=== PATIENT | female | born 1995 | race Caucasian/White ===

== ENCOUNTER 2018-09-08 06:01 | Day surgery (SDC) | payer OTHER, SELFPAY ==
[2018-09-04 08:04] VITALS: BMI 28.5
[2018-09-08] VITALS (9 sets, daily range): BP systolic 109–126; BP diastolic 56–76; PULSE 81–100; RESP 8–16; TEMP 36.1–37.1; O2SAT 94–98; BMI 28.7
[2018-09-08] MEDS: LACTATED RINGERS 1,000 ML 42 ML IV ×2 (07:11→09:58)
--- NOTE | 2018-09-08 07:32 | SUR.PREOP ---
PER MD FRANCO DISREGARD CURRENT ORDER FOR SERUM PREG TEST. PT UNABLE TO URINATE IN PRE OP AREA THEREFORE UNABLE TO LEAVE URINE SAMPLE. MD FRANCO AWARE.
--- NOTE | 2018-09-08 07:38 | PM.PREOP ---
Pre-operative Note Interval Note Pre-op Check: Yes History & Physical Reviewed by Physician Changes: No
--- NOTE | 2018-09-08 07:38 | PM.OP.1 ---
Operative Date/Time/Diagnoses Date of procedure: 09/08/18 Time of procedure: 07:38 Pre-op diagnosis: Left hallux abductovalgus with bunion Post-op diagnosis: same Procedure & Clinicians Procedure: Left first metatarsocuneiform arthrodesis, bunionectomy Same procedure as scheduled: Yes Indications: Painful hallux abductovalgus with bunion deformity. Conservative measures failed to alleviate pain and she wished to have surgical intervention at this time. Surgeon: iDana Whittington Click Yes if Unassisted: Yes Anesthesia Type: General Operative Notes Specimen(s): none sent Implants & Drains: [place] plate, 4.0 screw and 3.5 screws x 4 Estimated Blood Loss (mL): 30 Blood products transfused: none Tourniquet time (min): 117 Procedure in detail: The patient was brought to the operating room and placed on the operating table in the supine position. tourniquet was placed about the thigh. Well padded appropriately aligned. After induction of general anesthesia the foot and ankle were prepped and draped in the usual aseptic manner. The tourniquet was inflated. Incision was made over the 1st metatarsal cuneiform joint extending to the 1st metatarsophalangeal joint. The incision was deepened through subcutaneous tissues being careful to identify and retract all vital neurovascular structures. All bleeders were cauterized and ligated as necessary. A capsulotomy was performed to the 1st MTPJ exposing the enlarged medial eminence. The saw was used to resect the medial eminence and although there appeared to be somewhat of a bony cyst on the medial eminence a portion of this was able to be removed with the resection and the remaining portion did not appear to be serving as a vacuole of the bone and did not need packing. A rasp was used to reduce the sharp edges of the bone. Attention was then directed to the 1st metatarsocuneiform joint which was entered. The joint was taken down and a saw was used to resect the base of the 1st metatarsal and the distal leading edge of the medial cuneiform. This was done at a slight angle on the medial cuneiform to allow for closure of the intermetatarsal angle. It was found that the edge of the 1st metatarsal base laterally was too prominent to allow for full closure so the proximal lateral edge of the 1st metatarsal was also resected. The area was then able to be closed and the alignment was good. A drill was used to fenestrate either side of the former MC joint and fish scaling was also used. The area was irrigated with copious amounts normal sterile saline. With the aid of C-arm the guidewire was placed for temporary fixation through the 1st metatarsocuneiform joint. I was able to translate the 1st metatarsal slightly medially and plantarly to allow for better correction. It was noted to make sure that there was not a significant amount of plantar flexion distally. Next the plate was trialed and using the guide the lag screw was placed from distal lateral to proximal medial. The fusion site showed good compression and closure. There was still a little spot left that I was able to fill with some portion of harvested bone from the prior resection. The plate was then attached with the corresponding screws in the normal AO technique. This was reviewed on C-arm and noted to be strong and in appropriate alignment. Once this was loaded it would appear that there did not need to be a distal metatarsal osteotomy or phalangeal osteotomy and instead capsule balancing techniques with the soft tissue were appropriate. Once again after irrigation the medial 1st MTP capsule was resected and closed down and alignment with Vicryl the tourniquet was deflated and a prompt hyperemic response was seen in the foot. Deep and subcutaneous closure was closed performed with Vicryl and nylon to the skin. The foot was dressed with a lightly compressive sterile dressing and splint in alignment. She was then placed in a postoperative shoe and transferred to PACU with vital signs stable. Complications: none Condition: stable Disposition: PACU Plan for aftercare: Following a period of postoperative monitoring the patient be discharged home on written and oral postoperative instructions including keeping the dressing dry and intact, avoiding ambulation to the foot, icing and elevating the foot when seated at home. DVT prevention techniques have been reviewed. She has a postoperative visit already scheduled and around the 3 in a half to 4 week que we will usually get an x-ray at that time. Continue nonweightbearing until that point at minimum.
[2018-09-08] MEDS: CEFAZOLIN 2 GM/100 ML FROZ.PIGGY IV (07:45)
--- NOTE | 2018-09-08 08:20 | SUR.OPER ---
Supine on padded OR bed, head on pillow, arms secured on padded arm boards at <90 degrees abduction, left leg is under control of surgeon, safety belt at thigh, tape over blanket over right lower leg.
[2018-09-08] MEDS: BUPIVACAINE 0.5% (PF) VIAL 30 ML INJ (08:33)
[2018-09-08] MEDS: fentaNYL 100 MCG/2 ML INJ 50 MCG IV (11:01)
[2018-09-08] MEDS: HYDROCODONE/ACET 5/325 TABLET 1 TAB PO (11:27)
== END 2018-09-08 11:41 ==
PROVIDERS: PCP Physician Assistant Medical; Visit Provider Podiatrist
PROC: 0QBP0ZZ Excision of Left Metatarsal, Open Approach (ICD-10-PCS; CPT 28292; principal; 2018-09-08 07:45)
DX: M20.12 Hallux valgus (acquired), left foot (principal)
CPT/HCPCS: 28297; J0690; J1100; J2405; J2704; J3010

== ENCOUNTER 2019-12-07 12:56 | Day surgery (SDC) | payer OTHER, SELFPAY ==
[2019-12-04 08:44] VITALS: BMI 30.5
[2019-12-07] VITALS (7 sets, daily range): BP systolic 117–136; BP diastolic 75–87; PULSE 70–84; RESP 10–17; TEMP 36.4–37.3; O2SAT 99–100; BMI 30.5
[2019-12-07] MEDS: LACTATED RINGERS 1,000 ML 42 ML IV ×2 (13:44→15:30)
[2019-12-07] MEDS: CEFAZOLIN 2 GM/100 ML FROZ.PIGGY IV (15:47)
--- NOTE | 2019-12-07 15:49 | PM.PREOP ---
Pre-operative Note Interval Note History & Physical reviewed/Exam performed by Physician: Yes Changes to H&P: No
--- NOTE | 2019-12-07 15:49 | PM.OP.1 ---
Operative Date/Time/Diagnoses Date of procedure: 12/07/19 Time of procedure: 15:49 Pre-op diagnosis: Left great toe joint bone spur, hallux limitus Post-op diagnosis: same Procedure & Clinicians Procedure: Left first metatarsophalangeal joint cheilectomy Same procedure as scheduled: Yes Indications: Painful limited motion to the great toe joint left foot with spur formation. Conservative measures failed to alleviate the pain and she wished to have surgical intervention at this time. Surgeon: Diana Whittington Click Yes if Unassisted: Yes Anesthesia Type: General Operative Notes Closure Type: primary Specimen(s): none sent Estimated Blood Loss (mL): 10 Blood products transfused: none Procedure in detail: The patient was brought to the operating room and placed on the operating table in the supine position. Tourniquet was placed about the left thigh. Patient is well-padded and appropriately supported. After induction of general anesthesia the left foot and ankle were prepped and draped in the usual aseptic manner. The tourniquet was inflated. Incision was made over the 1st metatarsal phalangeal joint. The incision was deepened through subcutaneous tissues being careful to identify and retract all vital neurovascular structures. All bleeders were cauterized and ligated as necessary. The capsule was entered dorsally at the joint and this exposed the spurring of the dorsal metatarsal head, proximal phalangeal base, and significant amount of scar tissue noted on the dorsal joint. Of note, the metatarsal head dorsally showed some wearing of cartilage surface. There was limited motion in plantar flexion and dorsiflexion. The saw and rongeur were used to resect the dorsal joint spurs. A rasp was used to reduce the sharp edges of the bone. Much of the scar tissue was also reduced. A McGlamry scoop was used to gently enter the joint and plantarly release scar tissue. This allowed for better ability for dorsiflexion and plantar flexion of the great toe. The area was irrigated with copious amounts normal sterile saline. Deep and subcutaneous closure was closed performed with Vicryl. The tourniquet was deflated and a prompt hyperemic response was seen in the foot. Nylon suture used to close the skin. The foot was dressed with a lightly compressive sterile dressing and splint in alignment. Patient was transferred to PACU with vital signs stable. She will be placed in her postoperative shoe. Complications: none Post-operative Condition: stable Disposition: PACU Plan for aftercare: Following a period of postoperative monitoring, the patient will be discharged home on written and oral postoperative instructions including keeping the dressing dry and intact, avoiding significant ambulation to the foot although she is allowed a little bit of pressure to the midfoot periodically for weight-bearing. She should not be walking on the foot at this time, and that can change once the sutures have been removed. We will have her initiate range of motion exercises with the great toe this week. DVT prevention techniques have been reviewed.
--- NOTE | 2019-12-07 16:06 | SUR.OPER ---
Supine on padded OR bed, head on pillow, arms secured on padded arm boards at <90 degrees abduction, legs uncrossed, safety belt at abdomen, tape over blanket over nonoperative leg, bump under left hip.
[2019-12-07] MEDS: BUPIVACAINE 0.5% (PF) VIAL 30 ML INJ (16:11)
[2019-12-07] MEDS: LIDOCAINE 2% W/EPI INJ 20 ML INJ (16:12)
--- NOTE | 2019-12-07 16:44 | SUR.PHASEI ---
Addendum entered by Reva Vásquez R.N. 12/07/19 16:48: Was shivering upon arrival, warm blankets given, shivering subsided. Original Note: To PACU, very sleepy, arouses easily to voice, denied pain/nausea upon arrival 1645 Resting with eyes closed, states I'm awake, I can hear everything, I'm just really sleepy.
[2019-12-07] MEDS: HYDROCODONE/ACET 5/325 TABLET 1 TAB PO (17:05)
--- NOTE | 2019-12-07 17:07 | SUR.PHASEII ---
Spouse sitting with patient, crackers and water given prior to Rx.
--- NOTE | 2019-12-07 17:18 | SUR.PHASEII ---
Dr Whittington talking with patient, giving instructions. Pt A&O, talking appropriately. Moves freely. Stable
--- NOTE | 2019-12-07 17:21 | SUR.PHASEII ---
fresh ice pack given.
--- NOTE | 2019-12-07 17:25 | SUR.PHASEII ---
last minute questions clarified with Dr. Whittington prior to discharge. Stable and pleasant.
== END 2019-12-07 17:25 | disposition home or self-care (01) ==
LOC: OR 13:01
PROVIDERS: PCP Physician Assistant Medical; Referring Provider Podiatrist; Visit Provider Podiatrist
PROC: (CPT 28289; principal; 2019-12-07 14:30)
DX: M20.5X2 Other deformities of toe(s) (acquired), left foot (principal); M77.42 Metatarsalgia, left foot; M25.775 Osteophyte, left foot
CPT/HCPCS: 28289; J0690; J1100; J1885; J2250; J2405; J2704; J3010

== ENCOUNTER → 2022-01-11 16:10 | Outpatient (CLI) | payer OTHER, SELFPAY ==
[2022-01-11 17:48] LABS: COVID19 -Nasal RAPID Negative (Negative)
== END ==
PROVIDERS: PCP Physician Assistant Medical; Visit Provider Obstetrics & Gynecology
DX: Z01.812 Encounter for preprocedural laboratory examination (principal); Z20.822 Contact with and (suspected) exposure to COVID-19
CPT/HCPCS: 87635

== ENCOUNTER 2022-01-12 12:22 | Day surgery (SDC) | payer OTHER, SELFPAY ==
[2022-01-07 11:12] VITALS: BMI 29.4
[2022-01-12] VITALS (10 sets, daily range): BP systolic 98–121; BP diastolic 41–78; PULSE 58–100; RESP 11–20; TEMP 36.2; O2SAT 96–100; BMI 28.7
--- NOTE | 2022-01-12 | PATH_ITS ---
[facility] Accession Number: [id number] . 01 Material submitted: . peritoneum - PERITONEAL BIOPSIES . 02 Diagnosis: Peritoneal Biopsies: Fibroconnective tissue with involvement by endometriosis; negative for epithelial atypia or malignancy. Separate tissue fragments with features of fat necrosis. [facility] 01/14/2022 1731 Local . 02 Electronically signed: . Noemy Fong MD, Pathologist NPI- [id number] . 01 Gross description: . Received in formalin, labeled with the patient's name and additionally labeled peritoneal biopsies is an aggregate of chavez-brown variably hemorrhagic soft tissue fragments measuring 1.5 x 1.3 x 0.4 cm. The specimen is entirely submitted in cassette A1. (MS:[id number]) /MRV 01/13/2022 1505 Local . 02 Pathologist provided ICD-10: N92.6, N94.6, R10.2, N94.89 . 02 CPT . 869490 Specimen Comment: A courtesy copy of this report has been sent to [phone] Performed at: 01 [facility] [address] [facility], [place], [place] [id number] MD Everette Richard MD Phone: [phone] Performed at: [address] [facility] [address] [place], [place] [id number] MD Jalyn Sylvester MD Phone: [phone]
--- NOTE | 2022-01-12 12:58 | PM.PREOP ---
Pre-operative Note COVID-19 COVID-19 status: Negative Result date/Date tested (Pos, Neg/Pending): 01/11/22 Criteria for continued procedure: Expected advancement of disease process Interval Note History & Physical reviewed/Exam performed by Physician: Yes Changes to H&P: No
[2022-01-12] MEDS: LACTATED RINGERS 1,000 ML 100 ML IV (13:03)
--- NOTE | 2022-01-12 13:57 | SUR.OPER ---
Lithotomy on padded OR bed, head on pillow, arms secured on padded arm boards at <90 degrees abduction. Legs secured in padded yellow fins stirrups.
[2022-01-12] MEDS: BUPIVACAINE 0.5% (PF) 30 ML, EPINEPHrine 0.15 MG INJ (14:11)
[2022-01-12] MEDS: METHYLENE BLUE 50 MG/10 ML VIAL IV (14:26)
--- NOTE | 2022-01-12 14:50 | P.OP_ITS ---
Operative Date/Time/Diagnoses Date of procedure: 01/12/22 Time of procedure: 14:50 Pre-op diagnosis: Dysmenorrhea with 3 cm mass behind cervix likely endometriosis Post-op diagnosis: same Procedure & Clinicians Procedure: Laparoscopy with resection, cauterization of endometriosis Same procedure as scheduled: Yes Indications: Dysmenorrhea an 3 cm mass behind the cervix suggestive endometriosis Surgeon: Lidia Cortes Director Telecommunications: Emily Lr Click Yes if Unassisted: No Anesthesia Type: General Operative Notes Findings: Extensive endometriosis. Normal uterus, fallopian tubes and ovaries. There did not appear to be involvement of the tubes and ovaries with endometriosis. Mass behind cervix appears to be endometriosis with a degenerating epiploica. Endometriosis on the sidewalls of the abdomen bilaterally. [place] left over from prior appendectomy. Normal liver edge. Endometriosis involving the surface of the descending colon. Extensive endometriosis on the bilateral posterior broad ligaments. Closure Type: primary Specimen(s): other (Peritoneal biopsies) Estimated Blood Loss (mL): 5 Blood products transfused: none Procedure in detail: Patient was brought to the operating room where she underwent general anesthesia. She [facility] and prepped and draped in usual sterile fashion. No antibiotics were indicated. Pulsatile stockings were in place and functional. Warming was with blankets. A single-tooth tenaculum was placed on the anterior lip of the cervix and the cervix dilated to #6 Hegar dilator. The Zumi uterine manipulator was placed and balloon inflated with 3 mL of air. The area of the incisions were injected with half percent Marcaine with epinephrine. An incision was made in the umbilicus with a scalpel and the Verres needle placed in the abdomen. Confirmation of correct placement of the needle was performed by withdrawing on the syringe and then allowing fluid to fall freely through the needle. The abdomen was insufflated to 4 L of CO2. A 5 mm trocar was placed under direct visualization. 2 other 5 mm trochars were placed in the right and left lower quadrant under direct visualization after incising the skin. There did not appear to be any damage with placement of the trocars. Areas of endometriosis on the posterior broad ligament that were not over the ureters were grasped and removed with scissors attached to monopolar cautery. Bleeding was controlled with monopolar cautery. The mass behind the cervix was grasped and removed with blunt and sharp dissection. Bleeding was controlled with cautery. Adequate hemostasis was noted. The CO2 was allowed to escape from the abdomen. The trochars were removed. Skin was closed with 4-0 monocryl. The patient went to recovery room in good condition. Complications: none Post-operative Condition: stable Disposition: same day surgery Plan for aftercare: Home when awake and stable. Patient will need Lupron therapy postop to control endometriosis that was not resectable.
[2022-01-12] MEDS: ACETAMINOPHEN 325 MG TABLET 975 MG PO (15:03)
[2022-01-12] MEDS: ONDANSETRON 4 MG/2 ML INJ IV (15:04)
[2022-01-12] MEDS: OXYCODONE IR 5 MG TABLET PO ×2 (15:04→15:37)
[2022-01-12] MEDS: hydrOXYzine 50 MG/ML INJ 25 MG IM (15:04)
[2022-01-12] MEDS: HYDROMORPHONE 2 MG INJ IV (15:16)
== END 2022-01-12 16:25 | disposition home or self-care (01) ==
PROVIDERS: PCP Physician Assistant Medical; Referring Provider Specialist; Visit Provider Specialist
PROC: 0U5B4ZZ Destruction of Endometrium, Percutaneous Endoscopic Approach (ICD-10-PCS; CPT 58662; principal; 2022-01-12 13:30)
DX: N80.3 Endometriosis of pelvic peritoneum (principal); N80.8 Other endometriosis
CPT/HCPCS: 58662; 81025; J0171; J1100; J1170; J1885; J2250; J2405; J2704; J3010; J3410; Q9968

== ENCOUNTER → 2022-06-21 16:37 | Outpatient (CLI) | payer OTHER, SELFPAY ==
--- NOTE | 2022-06-21 16:39 | DI.US.S_ITS ---
PROCEDURE: US OB LIMITED INDICATIONS: PAINFUL PELVIC PRESSURE AND BLOATING OUTSIDE/PRIOR DATING DATA: Last menstrual period (LMP): Unknown. LMP-based estimated date of delivery (LOKESH): Unknown. First dating scan (date and location): 06/21/2022. Estimated date of delivery (LOKESH) from first dating scan: 10/21/2022. TECHNIQUE: Real-time scanning was performed of the fetus, with image documentation. COMPARISON: None. FINDINGS: A single living intrauterine gestation is present. Presentation: Vertex. Placenta: Placental position is posterior, without previa. Amniotic fluid index: 16.2 cm, normal range is 5-24 cm. Single deepest vertical pocket is 4.7 cm. heart rate: 153 beats per minute. Maternal cervical canal: 3.9 cm long. Normal lower limit is 2.5 cm. Biometric measurements: BPD: 5.4 cm, 22 weeks 4 days HC: 19.1 cm, 21 weeks 3 days AC: 17.1 cm, 22 weeks 0 days FL: 4.3 cm, 24 weeks 0 days Estimated gestational age by today's ultrasound: 22 weeks 4 days Estimated weight 529 g. Probable anterior uterine fibroid measuring 2.3 cm. facial structures and profile appear to be within normal limits. IMPRESSION: 1. [place] living intrauterine at 22 weeks 4 days based on today's ultrasound. Estimated weight 529 g. 2. Normal placenta and amniotic fluid. Recommend short-term follow-up OB ultrasound for complete anatomic survey. Dictated by: Rickie Donovan M.D. on 06/21/2022 at 19:12 Approved by: Rickie Donovan M.D. on 06/21/2022 at 19:16
== END ==
PROVIDERS: PCP Physician Assistant Medical; Referring Provider Obstetrics & Gynecology; Visit Provider Obstetrics & Gynecology
DX: O99.891 Other specified diseases and conditions complicating pregnancy (principal); R10.2 Pelvic and perineal pain; Z3A.22 22 weeks gestation of pregnancy
CPT/HCPCS: 76815

== ENCOUNTER → 2022-06-25 13:22 | Outpatient (CLI) | payer OTHER, SELFPAY ==
[2022-06-25 13:51] LABS: Miscellaneous to LabCorp NATERA KIT
[2022-06-25 14:33] LABS: Appearance Urine UA CLEAR; Bilirubin Urine UA NEGATIVE (NEGATIVE); Color Urine UA YELLOW; Glucose Urine UA NEGATIVE (Negative); Ketones Urine UA NEGATIVE (NEGATIVE); Leukocyte Esterase Urine UA TRACE (NEGATIVE); Nitrite Urine UA NEGATIVE (Negative); Occult Blood Urine UA 2+ (Negative); Protein Urine UA NEGATIVE (Negative); Specific Gravity Urine UA 1.015 (1.000-1.035); Urobilinogen Urine UA 0.2 E.U./dL (0.2)
[2022-06-25 14:34] LABS: pH Urine UA 6.5 (4.5-8.0)
[2022-06-25 14:38] LABS: Bacteria Urine None Seen; RBC Urine 1-5/HPF (0-5/HPF); Squamous Epithelial Cell Urine 5-10 /HPF (0-5/HPF); WBC Urine 0-1/HPF (0-5/HPF)
[2022-06-25 14:38] LABS: Add Manual Diff / Slide Review NO; Basophils Absolute Auto 0 /uL (0-100); Basophils Percent Auto 0.1 % (0-2); Eosinophils Absolute Auto 0 /uL (0-450); Eosinophils Percent Auto 0.4 % (2-4); Hematocrit 35.4 % (36-46); Hemoglobin 12.4 g/dL (12.0-16.0); Lymphocytes Absolute Auto 1400 /uL (1100-4500); Lymphocytes Percent Auto 13.2 % (25-40); Mean Corpuscular HGB Conc 34.9 % (30-36); Mean Corpuscular Hemoglobin 29.9 PG (26-34); Mean Corpuscular Volume 85.5 fL (80-100); Monocytes Absolute Auto 600 /uL (0-900); Monocytes Percent Auto 5.8 % (3-14); Neutrophils Absolute Auto 8700 /uL (1500-7000); Neutrophils Percent Auto 80.5 % (50-75); Platelet Count 226 X10^3/uL (150-400); Red Blood Cell Count 4.14 X10^6/uL (4.0-5.2); Red Cell Distribution Width 13.6 % (11.6-14.8); White Blood Cell Count 10.8 X10^3/uL (4.5-11.0)
[2022-06-25 15:52] LABS: Hepatitis B Surface Antigen NEGATIVE s/c (NEGATIVE); Rubella Antibody IgG 58.7 IU/mL (>15)
[2022-06-25 16:20] LABS: HIV 1 & 2 Ab/Ag 4th Gen Combo NEGATIVE (NEGATIVE); Hep C Virus Ab w/Reflex Quant NEGATIVE s/c (NEGATIVE)
[2022-06-26 07:47] LABS: RPR Screen Non Reactive (Non Reactive)
[2022-06-26 08:08] LABS: Varicella IgG Antibody 391 index (Immune >165)
== END ==
PROVIDERS: PCP Physician Assistant Medical; Referring Provider Obstetrics & Gynecology; Visit Provider Obstetrics & Gynecology
DX: Z34.02 Encounter for supervision of normal first pregnancy, second trimester (principal)
CPT/HCPCS: 36415; 80055; 81003; 81015; 86787; 86803; 86850; 86900; 86901; 87086; 87389

== ENCOUNTER → 2022-07-07 13:30 | Outpatient (ROUT) | payer OTHER, SELFPAY ==
[2022-07-07 15:13] LABS: Urine N gonorrhoeae NOT DETECTED
[2022-07-07 15:27] LABS: Urine Chlamydia NOT DETECTED
== END ==
PROVIDERS: PCP Physician Assistant Medical; Visit Provider Obstetrics & Gynecology
DX: Z34.02 Encounter for supervision of normal first pregnancy, second trimester (principal); Z3A.24 24 weeks gestation of pregnancy
CPT/HCPCS: 87491; 87591

== ENCOUNTER → 2022-07-14 13:01 | Outpatient (CLI) | payer OTHER, SELFPAY ==
[2022-07-14 15:24] LABS: Hemoglobin 12.5 g/dL (12.0-16.0)
[2022-07-14 15:34] LABS: GTT (PREG) 1 Hour PP 50gm Dose 88 mg/dL (76-139)
== END ==
PROVIDERS: PCP Physician Assistant Medical; Referring Provider Obstetrics & Gynecology; Visit Provider Obstetrics & Gynecology
DX: Z34.02 Encounter for supervision of normal first pregnancy, second trimester (principal); Z3A.26 26 weeks gestation of pregnancy
CPT/HCPCS: 36415; 82950; 85014; 85018

== ENCOUNTER 2022-09-06 20:44 | Outpatient (CLI) | payer OTHER, SELFPAY ==
[2022-09-06 21:02] VITALS: BP 135/81
--- NOTE | 2022-09-06 21:16 | PM.OBTRLD ---
Visit Information Visit Information Date of evaluation: 09/06/22 Primary OB Provider: Buffy Polo On-call OB Provider: Angélica Stevenson Reason for Evaluation: Yes non-stress test non-stress test reason: decreased movement Vital Signs Vital Signs: Vital Signs - 8 hr 09/06/22 21:02 Blood Pressure 135/81 [facility] Medical History Depression Hand, foot and mouth disease PSVT (paroxysmal supraventricular tachycardia) Surgical History H/O abdominal surgery H/O cardiac radiofrequency ablation History of bunionectomy of left great toe (09/08/18) History of bunionectomy of right great toe (09/21/17) Hx of appendectomy Hx of foot surgery Hx of foot surgery (12/07/19) [place] teeth removed Family History Grandfather Stroke Sister Preeclampsia Social History marital status: number of children: 1 household members: spouse lives independently: Yes housing: house pets and animals: Yes (1 cat ( manages litter box) and 1 dog, aware of toxo) education level: college (Nic's degree) 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) current occupational exposures/hazards: No special nakia needs: No travel history: over 6 months ago seatbelt use: always water heater temp set < 120 deg: Yes working smoke detector in home: Yes fire extinguisher in home: Yes carbon monox detector in home: Yes firearms in home: Yes do you feel safe at home: Yes Smoking Status: Never smoker second hand exposure: No alcohol intake: former (occasional prior to learning of ) substance use type: does not use during the past year weight has: increased > 10 lbs well-balanced diet: daily or most days daily servings fruits/ve-4 caffeine: Yes (occasionally, never up to 200mg) Type(s) of exercise: regular exercise and running Exam Vital Signs (past 8 hours): - 09/06/22 21:02 Blood Pressure 135/81 Evaluation Evaluation Baseline heart rate: 130 Variability: Moderate (11-25) monitor accelerations: Present Monitor Decelerations: Absent Category of Tracing: Reactive Diagnosis, Plan/Disposition Final Diagnosis (1) 33 weeks gestation of : Status: Acute (2) Decreased movement: Status: Acute Plan/Disposition Plan: 27-year-old at 33 weeks and 4 days presenting with decreased movement the past several hours. She denies contractions leaking or bleeding. She tried lying down, drinking water and eating without significant change. NST reactive. Patient felt more movement once in the center and was reassured. Follow-up as scheduled in clinic or return sooner if needed.
== END 2022-09-06 21:25 | disposition home or self-care (01) ==
LOC: OB 09-13 07:57
PROVIDERS: PCP Physician Assistant Medical; Referring Provider Family Medicine; Visit Provider Family Medicine
DX: O36.8130 Decreased fetal movements, third trimester, not applicable or unspecified (principal); Z3A.33 33 weeks gestation of pregnancy
CPT/HCPCS: 59025; G0378; G0379

== ENCOUNTER → 2022-09-27 12:54 | Outpatient (CLI) | payer OTHER, SELFPAY ==
[2022-09-28 16:46] LABS: Strep Grp B PCR NEG for Grp B Strep
== END ==
PROVIDERS: PCP Physician Assistant Medical; Visit Provider Obstetrics & Gynecology
DX: Z34.03 Encounter for supervision of normal first pregnancy, third trimester (principal); Z3A.36 36 weeks gestation of pregnancy
CPT/HCPCS: 87086; 87653

== ENCOUNTER 2022-10-09 12:05 | Outpatient (CLI) | payer OTHER, SELFPAY ==
[2022-10-09 13:06] LABS: Appearance Urine UA CLEAR; Bilirubin Urine UA NEGATIVE (NEGATIVE); Color Urine UA YELLOW; Glucose Urine UA NEGATIVE (Negative); Ketones Urine UA NEGATIVE (NEGATIVE); Leukocyte Esterase Urine UA 1+ (NEGATIVE); Nitrite Urine UA NEGATIVE (Negative); Occult Blood Urine UA 1+ (Negative); Protein Urine UA NEGATIVE (Negative); Specific Gravity Urine UA <=1.005 (1.000-1.035); Urobilinogen Urine UA 0.2 E.U./dL (0.2)
[2022-10-09 13:15] LABS: Bacteria Urine Moderate (10-30); Culture Indicated Urine Specimen Cultured; RBC Urine 0-1/HPF (0-5/HPF); Squamous Epithelial Cell Urine 1-5 /HPF (0-5/HPF); Transitional Epi Cells Urine 0-1/HPF (0-5/HPF); WBC Urine 1-5/HPF (0-5/HPF)
== END 2022-10-09 13:30 | disposition home or self-care (01) ==
LOC: OB 10-14 12:33
PROVIDERS: PCP Physician Assistant Medical; Referring Provider Obstetrics & Gynecology; Visit Provider Obstetrics & Gynecology
DX: O23.43 Unspecified infection of urinary tract in pregnancy, third trimester (principal); N39.0 Urinary tract infection, site not specified; Z3A.38 38 weeks gestation of pregnancy
CPT/HCPCS: 59025; 81001; 87086; G0378; G0379

== ENCOUNTER 2022-10-21 14:18 | Outpatient (CLI) | payer OTHER, SELFPAY ==
--- NOTE | 2022-10-21 20:43 | PM.OBTRLD ---
Visit Information Visit Information Date of evaluation: 10/21/22 Primary OB Provider: Buffy Polo On-call OB Provider: Buffy Polo Reason for Evaluation: Yes non-stress test non-stress test reason: other (post dates) [facility] Medical History Depression Hand, foot and mouth disease PSVT (paroxysmal supraventricular tachycardia) Surgical History H/O abdominal surgery H/O cardiac radiofrequency ablation History of bunionectomy of left great toe (09/08/18) History of bunionectomy of right great toe (09/21/17) Hx of appendectomy Hx of foot surgery Hx of foot surgery (12/07/19) [place] teeth removed Family History Grandfather Stroke Sister Preeclampsia Social History marital status: number of children: 1 household members: spouse lives independently: Yes housing: house pets and animals: Yes (1 cat ( manages litter box) and 1 dog, aware of toxo) education level: college (Nic's degree) 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) current occupational exposures/hazards: No special nakia needs: No travel history: over 6 months ago seatbelt use: always water heater temp set < 120 deg: Yes working smoke detector in home: Yes fire extinguisher in home: Yes carbon monox detector in home: Yes firearms in home: Yes do you feel safe at home: Yes Smoking Status: Never smoker second hand exposure: No alcohol intake: former (occasional prior to learning of ) substance use type: does not use during the past year weight has: increased > 10 lbs well-balanced diet: daily or most days daily servings fruits/ve-4 caffeine: Yes (occasionally, never up to 200mg) Type(s) of exercise: regular exercise and running Evaluation Evaluation Baseline heart rate: 140 Variability: Moderate (11-25) monitor accelerations: Present Monitor Decelerations: Absent Status: Category l Diagnosis, Plan/Disposition Plan/Disposition Plan: Assessment: Reactive NST at 40 wks Plan: C's Will contact once induction is scheduled OB Disposition: home
== END 2022-10-21 15:00 | disposition home or self-care (01) ==
LOC: OB 10-25 15:43
PROVIDERS: PCP Physician Assistant Medical; Referring Provider Obstetrics & Gynecology; Visit Provider Obstetrics & Gynecology
DX: O48.0 Post-term pregnancy (principal); Z3A.40 40 weeks gestation of pregnancy
CPT/HCPCS: 59025; G0378; G0379

== ENCOUNTER 2022-10-24 07:34 | Inpatient (IN) | payer OTHER, SELFPAY ==
[2022-10-24 08:49] VITALS: BP 138/78
[2022-10-24 08:55] LABS: Add Manual Diff / Slide Review NO; Basophils Absolute Auto 0 /uL (0-100); Basophils Percent Auto 0.2 % (0-2); Eosinophils Absolute Auto 100 /uL (0-450); Eosinophils Percent Auto 0.8 % (2-4); Hematocrit 35.8 % (36-46); Hemoglobin 12.6 g/dL (12.0-16.0); Lymphocytes Absolute Auto 1500 /uL (1100-4500); Lymphocytes Percent Auto 16.8 % (25-40); Mean Corpuscular HGB Conc 35.1 % (30-36); Mean Corpuscular Hemoglobin 29.5 PG (26-34); Monocytes Absolute Auto 600 /uL (0-900); Monocytes Percent Auto 6.6 % (3-14); Neutrophils Absolute Auto 6900 /uL (1500-7000); Neutrophils Percent Auto 75.6 % (50-75); Platelet Count 145 X10^3/uL (150-400); Red Blood Cell Count 4.26 X10^6/uL (4.0-5.2); Red Cell Distribution Width 13.5 % (11.6-14.8); White Blood Cell Count 9.1 X10^3/uL (4.5-11.0)
--- NOTE | 2022-10-24 09:19 | P.HPOB_ITS ---
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 with clear fluid. She continues to leak and reports baby is active. She is dee but not yet painfully, rates them 4/10. was conceived well on Lupron for endometriosis. She did not know she was until 22 weeks. She was seen by MFM and evaluation reassuring. Normal cell free DNA for female. She also has a history of SVT status post ablation which has been partially successful. She has had 2 episodes of SVT this and was able to convert herself spontaneously both times. Adrenaline is a trigger but she has generally learned how to manage her symptoms when they occur. care: limited care (Late to care), initiated at week # (24), number of visits (7) and pounds weight gain (21) Dating criteria OB: based on 2nd trimester US only Ultrasounds: normal mid trimester US Obstetrical complications: none Medical complications OB: cardiovascular (SVT) Preadmission Labs Last OB Lab Results: Blood Type O Positive 10/24/22 08:31 Antibody Screen Negative 10/24/22 08:31 Hematocrit 35.8 % (36-46) L 10/24/22 08:53 Hemoglobin 12.6 g/dL (12.0-16.0) 10/24/22 08:53 Hepatitis B Surface Antigen Negative s/c (NEGATIVE) 06/25/22 13 :34 Hepatitis C Antibody Negative s/c (NEGATIVE) 06/25/22 13:34 Rubella Antibody 58.7 IU/mL (>15) 06/25/22 13:34 Varicella-Zoster IgG Antibody 391 index (Immune >165) 06/25/22 13:34 Glucose 1 Hour 88 mg/dL (76-139) 07/14/22 14:02 Group B Streptococcus (PCR) Neg for grp b strep 09/27/22 12:54 -: Chlamydia screen: negative, Gonorrhea screen: negative and Urine: negative -: PAP smear: Normal Genetic Screens: Cell-free DNA: Normal External Labs -: Urine: negative Evaluation Evaluation Baseline heart rate: 130 Variability: Moderate (11-25) monitor accelerations: Present Monitor Decelerations: Absent Contraction Frequency (minutes): 4 Category of Tracing: Reactive Status: Category l PFSH Medical History Depression Hand, foot and mouth disease PSVT (paroxysmal supraventricular tachycardia) Surgical History H/O abdominal surgery H/O cardiac radiofrequency ablation History of bunionectomy of left great toe (09/08/18) History of bunionectomy of right great toe (09/21/17) Hx of appendectomy Hx of foot surgery Hx of foot surgery (12/07/19) [place] teeth removed Family History Grandfather Stroke Sister Preeclampsia Social History marital status: number of children: 1 household members: spouse lives independently: Yes housing: house pets and animals: Yes (1 cat ( manages litter box) and 1 dog, aware of toxo) education level: college (Nic's degree) 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) current occupational exposures/hazards: No special nakia needs: No travel history: over 6 months ago seatbelt use: always water heater temp set < 120 deg: Yes working smoke detector in home: Yes fire extinguisher in home: Yes carbon monox detector in home: Yes firearms in home: Yes do you feel safe at home: Yes Smoking Status: Never smoker second hand exposure: No alcohol intake: former (occasional prior to learning of ) substance use type: does not use during the past year weight has: increased > 10 lbs well-balanced diet: daily or most days daily servings fruits/ve-4 caffeine: Yes (occasionally, never up to 200mg) Type(s) of exercise: regular exercise and running Meds Home Medications and Allergies Home Medications Medication Instructions Recorded Confirmed Type prenat.vits,sugey,zbj-khfe-oukau 1 tab PO DAILY 06/24/22 10/21/22 History Allergies Allergy/AdvReac Type Severity Reaction Status Date / Time No Known Drug Allergies Allergy Verified 10/21/22 13:37 Review of Systems Review of Systems ROS: Yes All systems reviewed with the patient and are negative except as otherwise documented OB Exam Narrative Exam Narrative: Temperature 36.5? blood pressure 138/78 heart rate 85 HENMT Head: normal to inspection Eyes General: appearance normal, both eyes and all related structures Resp Effort & Inspection: normal respiratory effort Auscultation: clear to auscultation bilaterally Cardio Rate: regular rate Rhythm: regular rhythm Heart Sounds: S1 normal and S2 normal Extremities Lower extremity: Yes normal to inspection; No edema Presentation: vertex Estimated Weight (lbs): 8 Objective Labs Result Diagrams: 10/24/22 08:53 Labs: Laboratory Results - last 24 hr 10/24/22 08:53 WBC 9.1 RBC 4.26 Hgb 12.6 Hct 35.8 L MCV 84.0 MCH 29.5 MCHC 35.1 RDW 13.5 Plt Count 145 L Neut % (Auto) 75.6 H Lymph % (Auto) 16.8 L Miner % (Auto) 6.6 Eos % (Auto) 0.8 L Baso % (Auto) 0.2 Neut # (Auto) 6900 Lymph # (Auto) 1500 Miner # (Auto) 600 Eos # (Auto) 100 Baso # (Auto) 0 Assessment and Plan Assessment and Plan Assessment and Plan narrative: 27-year-old at 40 weeks and 3 days gestation with spontaneous rupture of membranes at home at 6:00 a.m. with clear fluid. GBS negative. SVE deferred due to rupture of membranes. She is dee regularly and feeling them though not yet in active labor. Discussed expected management versus Pitocin augmentation. She would like to try moving around for a couple hours and see if she progresses spontaneously. If not yet in active labor by noon, she is agreeable to Pitocin augmentation. Undecided on epidural. Plan Admit now, labs and COVID testing Expectant management, begin Pitocin at noon if not yet in active labor Epidural upon request Anticipate
[2022-10-24 09:20] LABS: COVID19 -Nasal RAPID Negative (Negative)
[2022-10-24] MEDS: LACTATED RINGERS 1,000 ML 100 ML IV ×3 (12:36→20:39)
[2022-10-24] MEDS: OXYTOCIN PREMIX 30 UNIT/500 ML PLAST..BAG IV (12:37)
--- NOTE | 2022-10-24 16:12 | PM.OBPNLAB ---
Date/Time Date Patient Seen: 10/24/22 Time Patient Seen: 16:12 Pain Control Pain control: other (Requesting an epidural) Pelvic Exam Dilation (cm): 5 Effacement (%): 80 station: +1 Amniotic membrane status: Ruptured (0630am 10/24/22) Contractions Contractions on admission: regular Monitor mode: External Pitocin rate (mU/min): 1 Contraction frequency (min): 2 Contraction duration (min): 1 Contraction pattern: Regular Contraction intensity: Strong/Firm Status status: Category l Heart Rate Baseline: 140 Monitor Accelerations: Present Monitor Decelerations: Early Monitor Variability: Moderate Assessment and Plan Assessment: active labor Comments: Epidural Expected management to spontaneous vaginal delivery
[2022-10-24] MEDS: FENT 2MCG/ML BUPIV 0.125% EPI 200 MCG/100 ML PLAST..BAG 7.5 MCG EPIDURAL (19:00)
[2022-10-24] MEDS: BUPIVACAINE 0.5% (PF) 10 ML VIAL 5 ML EPIDURAL (19:55)
--- NOTE | 2022-10-24 20:20 | PM.OBPNLAB ---
Date/Time Date Patient Seen: 10/24/22 Time Patient Seen: 20:20 Pain Control Pain control: epidural (Lots of pressure) Pelvic Exam Dilation (cm): 9 Effacement (%): 90 station: +1 Amniotic membrane status: Ruptured (0630am 10/24/22) Contractions Contractions on admission: regular Monitor mode: External Contraction frequency (min): 2 Contraction pattern: Regular Contraction intensity: Strong/Firm Status status: Category l Heart Rate Baseline: 135 Monitor Accelerations: Present Monitor Decelerations: Absent Monitor Variability: Moderate Assessment and Plan Assessment: active labor Comments: Change positions to see if can get rid of last bit of cervix Tried to reduce but unable
--- NOTE | 2022-10-24 23:03 | P.PCNOB_ITS ---
Labor & Delivery Delivery date: 10/24/22 Cervical ripening method: none Induction method: none Delivery augmentation: pitocin Delivery monitor: external FHT and external uterine Route of delivery: Episiotomy description: None L&D Laceration Description: Perineal - 1st Degree and Vaginal - 2nd Degree Quantitative Blood Loss: 150 Anesthesia Type: Epidural Complications: None Narrative: Patient complete and pushed for 1 hour and 42 minutes. At 10:22 p.m., a live female delivered spontaneously over an intact perineum in the OUMOU presentation. A loose nuchal cord x1 was reduced on the perineum. The remainder of the body delivered without difficulty and was placed on mom's abdomen. Pitocin was given in the IV fluids. After the cord stopped pulsing, the cord was double clamped and cut. Cord bloods were obtained. The placenta delivered intact with a three-vessel cord at 10:28 p.m.. The fundus was massaged to firm. A second-degree vaginal and first-degree perineal laceration were repaired in the usual fashion. QBL: 150 cc. Apgars 9 at 1 minute and 9 at 5 minutes. Epidural analgesia. . Mom and infant stable to recovery. [place] Baby 1: Infant gender: Female Presentation: vertex Position: Left Occiput Anterior Placenta delivery description: Spontaneous Cord Vessel Description: 3 Vessels, Nuchal Cord, Loose, Reduced and Clamped/Cut (After 6 minutes) score (1 min): 9 score (5 min): 9 weight: 7 lb 12.2 oz Plan for aftercare: Routine care
[2022-10-24] MEDS: LIDOCAINE 1% 20 ML (23:36)
[2022-10-25] MEDS: ACETAMINOPHEN 325 MG TABLET 650 MG PO ×5 (00:23→23:59)
[2022-10-25] MEDS: DERMOPLAST SPRAY 20% 60 ML 1 SPRAY TOP (00:24)
[2022-10-25] MEDS: LANOLIN OINT 7 GM 1 APPLIC TOP (00:24)
[2022-10-25] MEDS: IBUPROFEN 600 MG TABLET PO ×5 (00:24→23:59)
[2022-10-25] MEDS: FLUCONAZOLE 100 MG TABLET 150 MG PO (06:11)
[2022-10-25 06:33] LABS: Hemoglobin 11.2 g/dL (12.0-16.0)
[2022-10-25] MEDS: DOCUSATE 100 MG CAPSULE PO (12:04)
--- NOTE | 2022-10-25 13:23 | PM.OBPN.1 ---
Subjective - OB Subjective Patient comments: no complaints [place] baby status: doing well and nursing well [place] feeding status: exclusively breast feeding Date Patient Seen: 10/25/22 Time Patient Seen: 13:23 Interval history: Patient is a 27-year-old 1 para 1 day # 1 status post spontaneous vaginal delivery. Patient feeling a little sore. Using ice on the perineum. Bleeding is tapering. going well. Exam Narrative Exam Narrative: Generally: Patient is sitting up in bed, no acute distress Fundus: Firm at U -1 Extremities: 1+ edema, negative Homans Objective Labs Result Diagrams: 10/25/22 06:14 Labs: Laboratory Results - last 24 hr 10/25/22 06:14 Hgb 11.2 L Hct 33.0 L Assessment & Plan Plan day: 1 plan OB: routine care Time Spent With Patient Time: Total time spent is greater than 50% in coordination of care (as documented) at patient's floor/unit and/or counseling patient: Time with patient: 15-24 minutes
[2022-10-26] MEDS: ACETAMINOPHEN 325 MG TABLET 650 MG PO (05:35)
[2022-10-26] MEDS: IBUPROFEN 600 MG TABLET PO (05:36)
--- NOTE | 2022-11-27 20:00 | PM.OBDS.1 ---
Discharge Providers Provider Date of admission: 10/24/22 07:34 Discharge Date: 10/26/22 Primary care physician: Stephanie Horne PA-C Consults: 10/25/22 23:01 Consult to Pesticide Control Inspector Routine Comment: 10/26/22 07:40 Consult to Pesticide Control Inspector Routine Comment: Discharge provider: Buffy Polo MD Summary Hospital Course Date Patient Seen: 10/26/22 Time Patient Seen: 07:15 Diagnoses: 40-3/7 weeks gestation Spontaneous rupture of membranes Pitocin augmentation of labor Epidural analgesia Spontaneous vaginal delivery First-degree perineal, second-degree vaginal lacerations Hospital Course: Patient is a 27-year-old 1 para 1 who presented on October 24, 2022 at 40-,3/7 weeks gestation with spontaneous rupture of membranes without regular contractions. The fluid was clear. She was group B strep negative. No vaginal exam was performed on admit. At 4:00 p.m. she was getting more uncomfortable she had progressed to 5 cm/80% effaced/+1 station. Epidural was placed and Pitocin augmentation was started. At 8:20 p.m. she had progressed to 9 cm/90% effaced/and +1 station. The patient progressed to complete dilation and had a spontaneous vaginal delivery at 10:22 p.m.. She had a first-degree perineal, and a second-degree vaginal laceration which were repaired. Her course was unremarkable and she was discharged home on October 26, 2022 without complication. Peripartum Data Delivery Method: Natural Vaginal Laceration Description: Perineal - 1st Degree and Vaginal - 2nd Degree Episiotomy description: None Procedures: Pitocin augmentation of labor Epidural analgesia Spontaneous vaginal delivery First-degree perineal and second-degree vaginal laceration repair complications: none 1: Gender: Female Disposition of : home Status at Discharge Cognitive/behavioral status at discharge: oriented Functional status at discharge: independent ambulation Overall status at discharge: patient is progressing back to baseline Time Spent with Patient Time attestation: Total time spent providing and/or coordinating discharge services: Time spent: Less than 30 minutes Objective Labs 10/25/22 06:14 Exam Narrative Exam Narrative: Generally: Patient is sitting up in bed, no acute distress Fundus: Firm at U -2 Extremities: Negative Homans, no edema Discharge Plan Discharge Plan Patient Disposition: Home Provider Discharge Comment: Call with fever, chills, or bleeding vaginally more than a pad in an hour Ibuprofen 600 mg every 6 hours as needed Tylenol 650 mg every 6 hours as needed Discharge orders & Medications Prescriptions: New fluconazole [Diflucan] 150 mg tablet 150 mg PO DAILY Qty: 2 0RF Rx Instructions: Take 1 tablet in 3 days, may repeat 5 days after that if symptoms persist nystatin-triamcinolone 100,000-0.1 unit/gram-% ointment 1 applic topical BID Qty: 30 0RF Rx Instructions: Apply to affected area twice a day for 2-3 weeks Continued prenat.vits,sugey,[id number] Tablet 1 tab PO DAILY Follow up/Referrals: Buffy Polo MD [Physician] - 6 Weeks Diet/Activity/Treatments Diet: Regular Activity: Nothing in the vagina for 6 weeks Skin/Wound/Dressing Care Report to your healthcare provider any signs of infection, such as:: chills, fever, increased pain and unusual drainage Visit Report/Discharge Packet Instructions: DI for Labor and Delivery, Vaginal Stand Alone Forms: Patient Portal/API Discharge Data Primary Care Provider: Stephanie Horne
== END 2022-10-26 10:23 | disposition home or self-care (01) | DRG 807 ==
PROVIDERS: Obstetrics & Gynecology; Admitting Provider Family Medicine; PCP Physician Assistant Medical; Referring Provider Family Medicine; Visit Provider Family Medicine
DX: O70.1 Second degree perineal laceration during delivery (principal); Z37.0 Single live birth; O70.0 First degree perineal laceration during delivery; Z3A.40 40 weeks gestation of pregnancy; Z20.822 Contact with and (suspected) exposure to COVID-19
CPT/HCPCS: 36415; 59050; 59410; 85014; 85018; 85025; 86850; 86900; 86901; 87635; C9803; G0379; J2590

== ENCOUNTER → 2022-12-28 17:02 | Outpatient (CLI) | payer OTHER, SELFPAY ==
[2022-12-28 17:46] LABS: Free T4, Direct Thyroxine 1.02 ng/dL (0.78-2.19)
[2022-12-28 18:00] LABS: Thyroid Stimulating Hormone 3.34 uIU/mL (0.47-4.68)
== END ==
PROVIDERS: PCP Physician Assistant Medical; Referring Provider Obstetrics & Gynecology; Visit Provider Obstetrics & Gynecology
DX: E04.9 Nontoxic goiter, unspecified (principal); O72.1 Other immediate postpartum hemorrhage
CPT/HCPCS: 36415; 84439; 84443

== ENCOUNTER → 2023-01-04 12:29 | Outpatient (CLI) | payer OTHER, SELFPAY ==
--- NOTE | 2023-01-04 12:30 | DI.US.S_ITS ---
PROCEDURE: US THYROID INDICATIONS: Enlarged Thyroid on exam TECHNIQUE: Real-time scanning was performed of the thyroid gland, with image documentation. COMPARISON: None. FINDINGS: Right: Thyroid lobe measures 4.9 x 1.8 x 2.2 cm, and is heterogeneous in echotexture. Left: Thyroid lobe measures 4.0 x 1.6 x 1.7 cm, and is heterogeneous in echotexture. Isthmus: 4.0 mm thick. Nodule number: 1 Location: Right superior Size: 1.7 cm Composition: Predominantly solid Echogenicity: Hypoechoic Shape: wider than tall. Margins: Smooth Echogenic foci: None Total points: 4 ACR TI-RADS category: Moderately suspicious Nodule number: 2 Location: Right mid lateral Size: 1.5 cm Composition: Predominantly solid Echogenicity: Isoechoic Shape: wider than tall. Margins: Smooth Echogenic foci: None Total points: 3 ACR TI-RADS category: Mildly suspicious Nodule number: 3 Location: Right mid medial Size: 7 mm Composition: Predominantly solid Echogenicity: Hypoechoic Shape: wider than tall. Margins: Smooth. Echogenic foci: None. Total points: 3 ACR TI-RADS category: Mildly suspicious Nodule number: 4 Location: Left superior Size: 1.5 cm Composition: Predominantly solid Echogenicity: Hypoechoic Shape: wider than tall. Margins: Smooth Echogenic foci: None Total points: 4 ACR TI-RADS category: Moderately suspicious Nodule number: 5 Location: Mid Size: 6 mm Composition: Predominantly solid Echogenicity: Hypoechoic Shape: wider than tall. Margins: Smooth Echogenic foci: None. Total points: 4 ACR TI-RADS category: Moderately suspicious IMPRESSION: Bilateral thyroid nodules as above. Recommend continued followup ultrasound as detailed below. ACR TI-RADS definitions and recommendations: TI-RADS 1 (benign): 0 points. FNA not needed. TI-RADS 2 (not suspicious): 2 points. FNA not needed. TI-RADS 3 (mildly suspicious): 3 points. * FNA if 2.5 cm or larger, follow up if 1.5 cm or larger (at 1, 3, and 5 years). TI-RADS 4 (moderately suspicious): 4-6 points. * FNA if 1.5 cm or larger, follow up if 1 cm or larger (at 1, 2, 3, and 5 years). TI-RADS 5 (highly suspicious): 7 points or more. * FNA if 1 cm or larger, follow up if 0.5 cm or larger (every year for 5 years). Dictated by: Alexander Moe [facility] Interpreted: Jose Antonio De Los Santos MD on 01/04/2023 at 14:56 Transcribed by: ANGELO on 01/04/2023 at 15:00 Approved by: Jose Antonio De Los Santos M.D. on 01/04/2023 at 17:46
== END ==
PROVIDERS: PCP Physician Assistant Medical; Referring Provider Obstetrics & Gynecology; Visit Provider Obstetrics & Gynecology
DX: E04.2 Nontoxic multinodular goiter (principal)
CPT/HCPCS: 76536

== ENCOUNTER → 2023-02-02 14:02 | Outpatient (CLI) | payer OTHER, SELFPAY ==
--- NOTE | 2023-02-02 | PATH_ITS ---
Note [facility] Accession Number: [id number] TESTS RESULT FLAG UNITS REF RANGE LAB Clinician Provided Cytology Information No. of containers..01 Other (Miscellaneous) No. of containers..02 Previously Prepared Cytology Slide Source: LEFT SUPERIOR THYROIR NODULE DIAGNOSIS: LEFT SUPERIOR THYROIR NODULE NEGATIVE FOR MALIGNANT CELLS. POLYMORPHOUS LYMPHOCYTES AND LYMPHOHISTIOCYTIC FRAGMENTS. THE DIFFERENTIAL DIAGNOSIS INCLUDES A REACTIVE LYMPH NODE AND CHRONIC LYMPHOCYTIC (JOSE DAVID'S) THYROIDITIS, WHICH IS LESS FAVORED DUE TO ABSENT THYROID TISSUE. NO ATYPICAL LYMPHOCYTES IDENTIFIED. COMMENT: As part of quality analyst/technical writer, this case was also reviewed by Dr. Louie, who agrees with the interpretation. Pathologist ICD10: 01 E04.1 Signed out by: Noemy Fong MD, Pathologist NPI- [id number] Performed by: Darrell Diaz, Handyman ([facility]) Gross description: 30 CC, COLORLESS, CLEAR RECIEVED: IN CYTOLYT WITH 6 ALCOHOL FIXED AND 6 QUICK STAINED SLIDES ALSO 1 RNA VIAL WAS RECEIVED.VO /VDU 02/03/2023 0615 Local FLAG LEGEND: L-Low Normal,H-High Normal,LL-Alert Low,HH-Alert High <-Panic Low,>-Panic High,A-Abnormal,AA-Critical Abnormal Performed at: 01 =Z [facility] Cyt[facility] [address] [place] [address] [address], [place] [address] Everette Richard MD, Specimen Comment: [id number] Performed at: 01 [facility] [address] [address] [facility], [place], [place] [id number] MD Everette Richard MD Phone: [phone]
--- NOTE | 2023-02-02 14:03 | DI.US.S_ITS ---
PROCEDURE: US FINE NEEDLE ASPIRATION INDICATIONS: Left superior thyroid nodule 1.5cm TECHNIQUE: The indications, alternatives, benefits, risks, and complications of the procedure were explained to the patient. Written informed consent was obtained and placed in the chart. The thyroid region was examined sonographically and a site was chosen for ultrasound guided percutaneous sampling. The skin was prepared and draped in the usual fashion, and anesthetized with 1% lidocaine infiltrated from the skin down to the thyroid gland. Multiple passes were then performed, with contents emptied into an appropriate pathology specimen container. A bandage was applied to the area of access at completion of the study. COMPARISON: [facility], US, US THYROID, 01/04/2023, 13:03. FINDINGS: Location(s) of lesion(s) sampled: Left lobe superior, labeled as nodule #4 in the report for the prior ultrasound. [place]: 25 gauge hypodermic needles. Number of passes: 6 Medications: 1% lidocaine for local anaesthesia. Complications: None. IMPRESSION: Successful ultrasound-guided thyroid nodule fine needle aspiration, with cytology results pending. Please see chart below for management recommendations based on cytology results. [facility] ReportingRecommendationsNon-diagnostic* Repeat US-guided FNA, with on-site cytology evaluation if possible. * Repeated non-diagnostic nodules without high suspicion US features: close observation vs surgical consult. * Consider surgery if nodule has high suspicion US features, grows >20% in 2 dimensions on followup, or patient has clinical risk factors for malignancy. Benign* If nodule has high suspicion US features: repeat US and FNA within 12 months. * If nodule has low to intermediate suspicion US features: repeat US at 12-24 months. If nodule grows (20% increase in at least 2 dimensions, with minimal increase of 2 mm or >50% change in volume), or development of new suspicious US features, then repeat FNA or continue followup. * If nodule has very low suspicion US features: followup US at >24 months. Atypia of undetermined significance, follicular lesion of undetermined significanceRepeat FNA, molecular testing, followup US, or surgical consult.Follicular neoplasm, suspicious for follicular neoplasmSurgical consult; also consider molecular testing. Suspicious for malignancySurgical consult.MalignantSurgical consult. Dictated by: Alxeey Angel M.D. on 02/02/2023 at 15:59 Approved by: Alexey Angel M.D. on 02/02/2023 at 16:02
== END ==
PROVIDERS: PCP Physician Assistant Medical; Referring Provider Surgery; Visit Provider Surgery
DX: E04.1 Nontoxic single thyroid nodule (principal)
CPT/HCPCS: 10005

== ENCOUNTER → 2023-05-02 14:16 | Outpatient (CLI) | payer OTHER, SELFPAY ==
--- NOTE | 2023-05-02 14:17 | DI.US.S_ITS ---
PROCEDURE: US OB <= 14 WEEKS FETUS INDICATIONS: DATING AND VIABILITY; UNKNOWN DATING OUTSIDE/PRIOR DATING DATA: Last menstrual period (LMP): Unknown. First dating scan (date and location): 05/02/2023. Estimated date of delivery (LOKESH) from first dating scan: 12/15/2023. TECHNIQUE: Real-time scanning was performed of the fetus and maternal pelvic organs, with image documentation. COMPARISON: None. FINDINGS: Single living intrauterine . Embryo: Struble-rump length of 2.6 cm corresponding to gestational age of 7 weeks 4 days Heart rate: 160 beats per minute A perigestational collection is present measuring 1.2 x 0.8 x 1.1 cm. Maternal organs: Ovaries are unremarkable. Left corpus luteum. IMPRESSION: Single living intrauterine with gestational age of 7 weeks 4 days by crown-rump length corresponding to an LOKESH of 12/15/2023. We strive to produce accurate, complete, and clear reports of imaging services. To assist us in improving patient care, this report was composed using standard report templates and voice recognition software. Therefore, it may contain abnormal punctuation, insertions and/or omissions. Occasional wrong-word or sound-alike substitutions may occur. Though we review the report and make efforts to correct it, we do recommend that the report be read carefully in proper context to recognize any text inaccuracies. Dictated by: Alexey Angel M.D. on 05/02/2023 at 15:23 Approved by: Alexey Angel M.D. on 05/02/2023 at 15:25
== END ==
PROVIDERS: PCP Physician Assistant Medical; Referring Provider Obstetrics & Gynecology; Visit Provider Obstetrics & Gynecology
DX: Z36.87 Encounter for antenatal screening for uncertain dates (principal); Z3A.01 Less than 8 weeks gestation of pregnancy
CPT/HCPCS: 76801

== ENCOUNTER → 2023-05-18 09:05 | Outpatient (CLI) | payer OTHER, SELFPAY ==
[2023-05-18 15:04] LABS: Urine N gonorrhoeae NOT DETECTED
[2023-05-18 15:06] LABS: Urine Chlamydia NOT DETECTED
== END ==
PROVIDERS: PCP Physician Assistant Medical; Visit Provider Specialist
DX: Z34.81 Encounter for supervision of other normal pregnancy, first trimester (principal); Z3A.09 9 weeks gestation of pregnancy
CPT/HCPCS: 87491; 87591

== ENCOUNTER → 2023-05-18 09:22 | Outpatient (CLI) | payer OTHER, SELFPAY ==
[2023-05-18 12:05] LABS: Add Manual Diff / Slide Review NO; Basophils Absolute Auto 0 /uL (0-100); Basophils Percent Auto 0.3 % (0-2); Eosinophils Absolute Auto 100 /uL (0-450); Eosinophils Percent Auto 0.8 % (2-4); Hematocrit 40.3 % (36-46); Hemoglobin 14.1 g/dL (12.0-16.0); Lymphocytes Absolute Auto 1600 /uL (1100-4500); Lymphocytes Percent Auto 16.9 % (25-40); Mean Corpuscular Hemoglobin 29.8 PG (26-34); Mean Corpuscular Volume 85.1 fL (80-100); Monocytes Absolute Auto 600 /uL (0-900); Monocytes Percent Auto 6.7 % (3-14); Neutrophils Absolute Auto 6900 /uL (1500-7000); Neutrophils Percent Auto 75.3 % (50-75); Platelet Count 213 X10^3/uL (150-400); Red Blood Cell Count 4.73 X10^6/uL (4.0-5.2); Red Cell Distribution Width 13.7 % (11.6-14.8); White Blood Cell Count 9.2 X10^3/uL (4.5-11.0)
[2023-05-18 12:47] LABS: Free T3, Triiodothyronine Free 3.85 pg/mL (2.77-5.27)
[2023-05-18 13:01] LABS: Thyroid Stimulating Hormone 36.9 uIU/mL (0.47-4.68)
[2023-05-19 09:38] LABS: Varicella IgG Antibody 776 index (Immune >165)
[2023-05-19 17:30] LABS: Hepatitis B Surface Antigen NEGATIVE s/c (NEGATIVE); Rubella Antibody IgG 84.2 IU/mL (>15)
[2023-05-19 17:47] LABS: HIV 1 & 2 Ab/Ag 4th Gen Combo NEGATIVE (NEGATIVE); Hep C Virus Ab w/Reflex Quant NEGATIVE s/c (NEGATIVE)
[2023-05-20 08:10] LABS: RPR Screen Non Reactive (Non Reactive)
== END ==
PROVIDERS: PCP Physician Assistant Medical; Referring Provider Specialist; Visit Provider Specialist
DX: Z34.81 Encounter for supervision of other normal pregnancy, first trimester (principal); Z3A.09 9 weeks gestation of pregnancy
CPT/HCPCS: 36415; 80055; 84439; 84443; 84481; 86787; 86803; 86850; 86900; 86901; 87389; 87491; 87591

== ENCOUNTER → 2023-06-17 11:54 | Outpatient (CLI) | payer OTHER, SELFPAY ==
[2023-06-17 14:01] LABS: Free T4, Direct Thyroxine 1.24 ng/dL (0.78-2.19)
[2023-06-17 14:15] LABS: Thyroid Stimulating Hormone 4.69 uIU/mL (0.47-4.68)
== END ==
PROVIDERS: Obstetrics & Gynecology; PCP Physician Assistant Medical; Referring Provider Specialist; Visit Provider Specialist
DX: Z34.82 Encounter for supervision of other normal pregnancy, second trimester (principal); E04.1 Nontoxic single thyroid nodule; E04.9 Nontoxic goiter, unspecified
CPT/HCPCS: 36415; 84439; 84443

== ENCOUNTER → 2023-07-15 11:00 | Outpatient (CLI) | payer OTHER, SELFPAY ==
[2023-07-15 12:35] LABS: Free T4, Direct Thyroxine 1.28 ng/dL (0.78-2.19)
[2023-07-15 12:49] LABS: Thyroid Stimulating Hormone 0.566 uIU/mL (0.47-4.68)
[2023-07-18 13:24] LABS: AFP Value 33.5 ng/mL (.); Gest Age on Col Date 22.9 weeks (.); Insulin Dep Diabetes No (.); OSBR Risk 1IN 10000 (.); Results Report (.); Test Results *Screen Negative* (.)
[2023-07-19 09:02] LABS: PDF SCANNED
== END ==
PROVIDERS: PCP Physician Assistant Medical; Referring Provider Specialist; Visit Provider Specialist
DX: Z3A.18 18 weeks gestation of pregnancy (principal); Z34.82 Encounter for supervision of other normal pregnancy, second trimester; E03.9 Hypothyroidism, unspecified
CPT/HCPCS: 36415; 82105; 84439; 84443

== ENCOUNTER → 2023-07-29 14:14 | Outpatient (CLI) | payer OTHER, SELFPAY ==
--- NOTE | 2023-07-29 14:15 | DI.US.S_ITS ---
PROCEDURE: US OB >= 14 WEEKS FETUS INDICATIONS: ANATOMY SCAN OUTSIDE/PRIOR DATING DATA: Last menstrual period (LMP): Unknown. First dating scan (date and location): 05/02/2023. Estimated date of delivery (LOKESH) from first dating scan: 12/15/2023. TECHNIQUE: Real-time scanning was performed of the fetus, with image documentation and biometric measurements. Endovaginal scanning: Not performed COMPARISON: [facility], US, OB >= 14 WEEKS FETUS, 06/17/2023, 11:51. FINDINGS: General: A single living intrauterine gestation is present. Presentation: Breech. Placenta: Placental position is anterior , without previa. Amniotic fluid index: 16.0 cm, normal range is 5-24 cm. Single deepest vertical pocket is 4.8 cm. heart rate: 145 beats per minute. Maternal cervical canal: 5.7 cm long. Normal lower limit is 2.5 cm. biometrics: Biparietal diameter: 4.7 cm 20 weeks 2 days Head circumference: 18.3 cm 20 weeks 5 days Abdominal circumference: 14.9 cm 20 weeks 1 day Femur length: 3.3 cm 20 weeks 3 days estimated gestational age: 20 weeks 1 day Composite gestational age from present scan: 20 weeks 3 days Estimated weight and percentile: 344 g, 54th percentile Anatomic survey: Neuro: Ventricles are non-dilated at less than 10 mm. Cisterna magna is normal at 3-11 mm. Cerebellum is normal in size and morphology. Nuchal skin fold: Normal at less than 6 mm between 14-21 weeks gestational age. Face: Nose and lips, facial profile are normal. Spine: No evidence for spina bifida. Heart: 4-chambered heart is present, with normal ventricular outflow tracts. Diaphragm: Diaphragm is intact. Stomach: Left-sided stomach is present. Kidneys: No hydronephrosis. Normal is less than 5 mm in 2nd trimester, less than 7 mm in 3rd trimester. Cord: 3-vessel cord has orthotopic insertion. Bladder: Normal in size. Extremities: All 4 extremities identified. IMPRESSION: 1. Single living intrauterine . 2. Normal 2nd trimester anatomy survey. No anatomic anomalies detected at this time. We strive to produce accurate, complete, and clear reports of imaging services. To assist us in improving patient care, this report was composed using standard report templates and voice recognition software. Therefore, it may contain abnormal punctuation, insertions and/or omissions. Occasional wrong-word or sound-alike substitutions may occur. Though we review the report and make efforts to correct it, we do recommend that the report be read carefully in proper context to recognize any text inaccuracies. Dictated by: Alexey Angel M.D. on 07/29/2023 at 19:59 Approved by: Alexey Angel M.D. on 07/29/2023 at 20:08
== END ==
PROVIDERS: PCP Physician Assistant Medical; Referring Provider Specialist; Visit Provider Specialist
DX: Z34.82 Encounter for supervision of other normal pregnancy, second trimester (principal); Z3A.20 20 weeks gestation of pregnancy
CPT/HCPCS: 76811

== ENCOUNTER → 2023-08-25 15:26 | Outpatient (CLI) | payer OTHER, SELFPAY ==
[2023-08-25 18:12] LABS: Hematocrit 35.6 % (36-46); Hemoglobin 12.3 g/dL (12.0-16.0)
[2023-08-25 18:29] LABS: GTT (PREG) 1 Hour PP 50gm Dose 91 mg/dL (76-139)
[2023-08-25 18:45] LABS: Free T4, Direct Thyroxine 1.12 ng/dL (0.78-2.19)
[2023-08-25 18:59] LABS: Thyroid Stimulating Hormone 1.45 uIU/mL (0.47-4.68)
== END ==
PROVIDERS: PCP Physician Assistant Medical; Referring Provider Obstetrics & Gynecology; Visit Provider Obstetrics & Gynecology
DX: Z34.82 Encounter for supervision of other normal pregnancy, second trimester (principal); E03.9 Hypothyroidism, unspecified; Z3A.26 26 weeks gestation of pregnancy
CPT/HCPCS: 36415; 82950; 84439; 84443; 85014; 85018

== ENCOUNTER 2023-09-02 14:12 | Outpatient (CLI) | payer OTHER, SELFPAY ==
[2023-09-02 15:47] LABS: Appearance Urine UA CLEAR; Bilirubin Urine UA NEGATIVE (NEGATIVE); Color Urine UA YELLOW; Glucose Urine UA NEGATIVE (Negative); Ketones Urine UA NEGATIVE (NEGATIVE); Leukocyte Esterase Urine UA NEGATIVE (NEGATIVE); Nitrite Urine UA NEGATIVE (Negative); Occult Blood Urine UA NEGATIVE (Negative); Protein Urine UA NEGATIVE (Negative); Specific Gravity Urine UA <=1.005 (1.000-1.035); Urobilinogen Urine UA 0.2 E.U./dL (0.2)
--- NOTE | 2023-09-02 15:47 | PM.CN ---
History of Present Illness Consult details Date Patient Seen: 09/02/23 Time Patient Seen: 15:47 Chief complaint: OBS Narrative: Identification: Patient is a 27-year-old female who is currently 25 weeks EGA. Patient states roughly 2-3 days ago she developed upper abdominal pain is worse when she moves worse when she stands up. However when she is in active and appears to resolve. She does note some mild association with eating. 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 She denies any associated symptoms such as pain or burning on urination or dyspepsia. She does have a history of father who had gallbladder disease. She is currently 25 weeks EGA and an uncomplicated . Meds Home Medications and Allergies Home Medications Medication Instructions Recorded Confirmed Type prenat.vits,sugey,eyq-mssr-ncabo 1 tab PO DAILY 06/24/22 08/12/23 History levothyroxine 100 mcg tablet 125 mcg (1.25 x 100 mcg) PO DAILY 07/15/23 08/12/23 Rx #30 tabs Allergies Allergy/AdvReac Type Severity Reaction Status Date / Time No Known Drug Allergies Allergy Verified 08/12/23 10:24 Exam Const General: cooperative, healthy appearing and comfortable GI Inspection: normal to inspection Palpation: soft and tender (Patient has a diastasis rectus which is tender. Duplicates her pain) [facility] Medical History (Updated 09/02/23 @ 15:53 by Marshall Gray MD) Hand, foot and mouth disease PSVT (paroxysmal supraventricular tachycardia) Encounter for supervision of normal first , second trimester Depression Surgical History (Updated 05/04/23 @ 09:42 by Naheed Sanches RN) H/O abdominal surgery Hx of foot surgery (12/07/19) Hx of foot surgery History of bunionectomy of left great toe (09/08/18) Hx of appendectomy H/O cardiac radiofrequency ablation (~2012) [place] teeth removed History of bunionectomy of right great toe (09/21/17) Family History (Updated 05/04/23 @ 09:46 by Naheed Sanches, NETTA) Grandfather Pancreatic cancer Sister Preeclampsia Grandmother Stroke Father Hypertension Perthes disease Grandmother Stroke Heart disease Heart attack Sister Lupus Social History marital status: number of children: 1 household members: spouse and children lives independently: Yes caregiver/support person: Yes housing: house pets and animals: Yes (1 cat ( manages litter box) and 1 dog, aware of toxo) education level: college (bachelor's degree) occupational status: employed 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) special nakia needs: No travel history: over 6 months ago Safety seatbelt use: always helmet use: Yes water heater temp set < 120 deg: Yes working smoke detector in home: Yes fire extinguisher in home: Yes carbon monox detector in home: Yes firearms in home: Yes firearms unloaded and locked: Yes do you feel safe at home: Yes Tobacco & Substance Use Smoking Status: Never smoker second hand exposure: No alcohol intake: former (rarely when not ) substance use type: does not use Diet and Exercise during the past year weight has: other (daughter is only 6 months old) well-balanced diet: daily or most days daily servings fruits/ve-4 caffeine: No Type(s) of exercise: other (active lifestyle) Assessment & Plan Assessment and plan (1) Diastasis of rectus abdominis: Problem details: Patient is a symptomatic diastasis rectus was tenderness at the insertion of the lower ribs. Status: Acute Plan: Patient told he is conservative measures and this should resolve after her . Physical therapy might be an adjunct.
[2023-09-02 15:55] LABS: Bacteria Urine Few (2-10); Culture Indicated Urine Cult Not Indicated; RBC Urine None Seen (0-5/HPF); Squamous Epithelial Cell Urine 5-10 /HPF (0-5/HPF); WBC Urine None Seen (0-5/HPF)
== END 2023-09-02 16:00 | disposition home or self-care (01) ==
LOC: LABOR 14:18 → OB 09-05 08:22
PROVIDERS: PCP Physician Assistant Medical; Referring Provider Obstetrics & Gynecology; Visit Provider Obstetrics & Gynecology
DX: O26.892 Other specified pregnancy related conditions, second trimester (principal); M62.08 Separation of muscle (nontraumatic), other site; Z3A.25 25 weeks gestation of pregnancy
CPT/HCPCS: 59025; 81001; G0378; G0379

== ENCOUNTER → 2023-11-25 13:56 | Outpatient (CLI) | payer OTHER, SELFPAY ==
[2023-11-29 13:15] LABS: Strep Grp B PCR NEG for Grp B Strep
== END ==
PROVIDERS: PCP Physician Assistant Medical; Visit Provider Specialist
DX: Z34.83 Encounter for supervision of other normal pregnancy, third trimester (principal); Z3A.37 37 weeks gestation of pregnancy
CPT/HCPCS: 87653

== ENCOUNTER 2023-12-19 15:53 | Outpatient (CLI) | payer OTHER, SELFPAY | END 2023-12-19 16:35 | disposition home or self-care (01) | LOC: OB 12-21 07:39 | PROVIDERS: PCP Physician Assistant Medical; Referring Provider Obstetrics & Gynecology; Visit Provider Obstetrics & Gynecology | DX: O48.0 Post-term pregnancy (principal); Z3A.40 40 weeks gestation of pregnancy | CPT/HCPCS: 59025; G0378; G0379 ==

== ENCOUNTER 2023-12-20 03:45 | Inpatient (IN) | payer OTHER, SELFPAY ==
[2023-12-20 05:19] LABS: Add Manual Diff / Slide Review NO; Basophils Absolute Auto 0 /uL (0-100); Basophils Percent Auto 0.3 % (0-2); Eosinophils Absolute Auto 100 /uL (0-450); Eosinophils Percent Auto 0.5 % (2-4); Hematocrit 37.2 % (36-46); Hemoglobin 12.9 g/dL (12.0-16.0); Lymphocytes Absolute Auto 1600 /uL (1100-4500); Lymphocytes Percent Auto 12.2 % (25-40); Mean Corpuscular HGB Conc 34.7 % (30-36); Mean Corpuscular Hemoglobin 28.7 PG (26-34); Mean Corpuscular Volume 82.7 fL (80-100); Monocytes Absolute Auto 800 /uL (0-900); Monocytes Percent Auto 6.1 % (3-14); Neutrophils Absolute Auto 10600 /uL (1500-7000); Neutrophils Percent Auto 80.9 % (50-75); Platelet Count 160 X10^3/uL (150-400); Red Cell Distribution Width 14.8 % (11.6-14.8); White Blood Cell Count 13.2 X10^3/uL (4.5-11.0)
[2023-12-20 08:00] VITALS: BP 132/73
--- NOTE | 2023-12-20 09:17 | PM.OBHP.IH.1 ---
OB HPI Date/Time Date of admission: 12/20/23 Date Patient Seen: 12/20/23 Time Patient Seen: 08:35 History of Present Condition Chief complaint: Labor & Delivery LOKESH Calculator Estimated Delivery Date Method Current WG Current Estimate 12/15/23 Ultrasound #1 40w 5d Estimated Gestational Age (weeks): 40+5 : 2 Para: 1 care: good care, initiated at week # (9), number of visits (12) and pounds weight gain (39) Dating criteria OB: LMP confirmed by 1st trimester US Ultrasounds: normal 1st trimester US and normal mid trimester US Obstetrical complications: none Medical complications OB: other (hypothyroid) Preadmission Labs Last OB Lab Results: Blood Type O Positive 12/20/23 05:05 Antibody Screen Negative 12/20/23 05:05 Hematocrit 37.2 % (36-46) 12/20/23 05:05 Hemoglobin 12.9 g/dL (12.0-16.0) 12/20/23 05:05 Hepatitis B Surface Antigen Negative s/c (NEGATIVE) 05/18/23 10:05 Hepatitis C Antibody Negative s/c (NEGATIVE) 05/18/23 10:05 Rubella Antibody 84.2 IU/mL (>15) 05/18/23 10:05 Varicella-Zoster IgG Antibody 776 index (Immune >165) 05/18/23 10:05 Glucose 1 Hour 91 mg/dL (76-139) 08/25/23 15:39 Group B Streptococcus (PCR) Neg for grp b strep 11/25/23 13:56 -: Chlamydia screen: negative and Gonorrhea screen: negative -: PAP smear: Normal Genetic Screens: Cell-free DNA: Normal (normal female) and Alpha-fetoprotein: Normal Prior (ies) Past Pregnancies Del. Date GA/Weeks Labor Lgth Wt Sex Route Outcome Anesthesia Place Delv Breastfeed Preg Comp Name 10/24/22 40.3 16 7 lb 12 oz Female vaginal live - full term epidural IH Still going as of 05/04/23 other [place] Delivery Date: 10/24/22 Last Updated by: Naheed Sanches RN conceived on Lupron, SVT occasional spells Evaluation Evaluation Baseline heart rate: 125 Variability: Moderate (11-25) monitor accelerations: Present Monitor Decelerations: Absent Contraction Frequency (minutes): 3 Uterine Contraction Intensity: Strong/Firm Status: Category l Dilation (cm): 6 Effacement (%): 90 station: +1 Position of cervix: mid Consistency: soft [facility] Medical History (Updated 11/11/23 @ 14:24 by Lidia Cortes MD) Hand, foot and mouth disease PSVT (paroxysmal supraventricular tachycardia) Encounter for supervision of normal first , second trimester Depression Surgical History (Updated 05/04/23 @ 09:42 by Naheed Sanches, RN) H/O abdominal surgery Hx of foot surgery (12/07/19) Hx of foot surgery History of bunionectomy of left great toe (09/08/18) Hx of appendectomy H/O cardiac radiofrequency ablation (~2012) [place] teeth removed History of bunionectomy of right great toe (09/21/17) Family History (Updated 05/04/23 @ 09:46 by Naheed Sanches RN) Grandfather Pancreatic cancer Sister Preeclampsia Grandmother Stroke Father Hypertension Perthes disease Grandmother Stroke Heart disease Heart attack Sister Lupus Social History marital status: number of children: 1 household members: spouse and children lives independently: Yes caregiver/support person: Yes housing: house pets and animals: Yes (1 cat ( manages litter box) and 1 dog, aware of toxo) education level: college (bachelor's degree) occupational status: employed 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) special nakia needs: No travel history: over 6 months ago seatbelt use: always helmet use: Yes water heater temp set < 120 deg: Yes working smoke detector in home: Yes fire extinguisher in home: Yes carbon monox detector in home: Yes firearms in home: Yes firearms unloaded and locked: Yes do you feel safe at home: Yes Smoking Status: Never smoker second hand exposure: No alcohol intake: former (rarely when not ) substance use type: does not use during the past year weight has: other (daughter is only 6 months old) well-balanced diet: daily or most days daily servings fruits/ve-4 caffeine: No Type(s) of exercise: other (active lifestyle) Meds Home Medications and Allergies Home Medications Medication Instructions Recorded Confirmed Type prenat.vits,sugey,tal-ygfb-auxvs 1 tab PO DAILY 06/24/22 12/19/23 History levothyroxine 125 mcg tablet 125 mcg PO DAILY #30 tabs 10/03/23 12/19/23 Rx RSVPreF3 antigen-AS01E 120 mcg IM ONCE RSV vaccine #1 ea 11/03/23 12/19/23 Rx adjuvant(PF) 120 mcg/0.5 mL IM suspension, kit Allergies Allergy/AdvReac Type Severity Reaction Status Date / Time No Known Drug Allergies Allergy Verified 12/19/23 14:59 OB Exam Narrative Exam Narrative: Generally: Patient still feeling contractions despite epidural Fundal height: 40 cm Estimated weight: 7-1/2 lb Extremities: Trace edema Objective Labs 12/20/23 05:05 Labs: Laboratory Results - last 24 hr 12/20/23 05:05 WBC 13.2 H RBC 4.50 Hgb 12.9 Hct 37.2 MCV 82.7 MCH 28.7 MCHC 34.7 RDW 14.8 Plt Count 160 Neut % (Auto) 80.9 H Lymph % (Auto) 12.2 L [place] % (Auto) 6.1 Eos % (Auto) 0.5 L Baso % (Auto) 0.3 Neut # (Auto) 19685 H Lymph # (Auto) 1600 [place] # (Auto) 800 Eos # (Auto) 100 Baso # (Auto) 0 Blood Type O Positive Antibody Screen Negative Assessment and Plan Assessment and Plan Assessment and Plan narrative: Assessment: 28-year-old 2 para 1 at 40-,5/7 weeks gestation in active labor Epidural suboptimal Plan: Call anesthesia to bolus or redo epidural Expected management to spontaneous vaginal delivery AROM once patient comfortable Time Spent with Patient Total time spent with greater than 50% in coordination of care (as documented) at patient's floor/unit and/or counseling patient:: 15-24 minutes
--- NOTE | 2023-12-20 10:58 | PM.AN.REGBLK ---
[facility] <Yogi Dasilva MD - Last Filed: 12/20/23 15:32> Pre-procedure Procedure: Continuous Lumbar Epidural for L&D Attending OB provider: Buffy Polo PM/ROS narrative: , history hypothyroidism. Hx: No personal or family history of anesthesia problems. ASA Class: III Labs: Hct 37.2 % (36-46) 12/20/23 05:05 Plt Count 160 X10^3/uL (150-400) 12/20/23 05:05 Medications: Current Medications Generic Name Dose Route Start Last Admin Trade Name Freq PRN Reason Stop Dose Admin Carboprost Tromethamine 250 mcg 12/20/23 04:26 Carboprost 250 Mcg/Ml Ampul IM Q90M PRN Bleeding Diphenhydramine HCl 25 mg 12/20/23 07:40 Diphenhydramine 50 Mg/Ml Vial IV Q10M PRN Pruritis Ephedrine Sulfate 5 mg 12/20/23 07:40 Ephedrine 50 Mg/Ml Vial IV Q5M PRN Blood pressure decrease more than 20% of baseline. Oxytocin/Lactated Ringer's 30 unit in 500 mls @ 200 mls/hr 12/20/23 04:26 Oxytocin Premix IV CONT PRN Bleeding Protocol Tranexamic Acid 1,000 mg/ 100 mls @ 200 mls/hr 12/20/23 04:26 Sodium Chloride IV NOW PRN Bleeding Lactated Ringer's 1,000 mls @ 100 mls/hr 12/20/23 04:30 Lactated Ringers IV CONT LAINEY FENT 2MCG/ML BUPIV 0.125% EPI 200 mcg in 100 mls @ 8 mls/hr 12/20/23 07:45 Fentanyl/Bupiv/Ns 2mcg/Ml - 0.125% EPIDURAL CONT LAINEY Lidocaine HCl 20 ml 12/20/23 04:26 Lidocaine 1% 20 Ml INJ INTRA-OP PRN Post Delivery Methylergonovine Maleate 0.2 mg 12/20/23 04:26 Methylergonovine 0.2 Mg Tablet PO Q6HR PRN Heavy Bleeding Methylergonovine Maleate 0.2 mg 12/20/23 04:26 Methylergonovine 0.2 Mg/Ml Vial IM NOW PRN Bleeding Misoprostol 800 mcg 12/20/23 04:26 Misoprostol 200 Mcg Tablet NM NOW PRN Bleeding Misoprostol 400 mcg 12/20/23 04:26 Misoprostol 200 Mcg Tablet SL NOW PRN Bleeding Nalbuphine HCl 2.5 mg 12/20/23 07:40 Nalbuphine 20 Mg/Ml Ampul IV Q10M PRN Pruritis Naloxone HCl 0.2 mg 12/20/23 04:26 Naloxone 0.4 Mg/Ml Vial IV Q2MIN PRN Opiate Reversal Naloxone HCl 0.4 mg 12/20/23 07:42 Naloxone 0.4 Mg/Ml Vial IV Q2MIN PRN Opiate Reversal Oxytocin 10 unit 12/20/23 04:26 Oxytocin 10 Unit/Ml Vial IM NOW PRN Bleeding Allergies: Allergies Allergy/AdvReac Type Severity Reaction Status Date / Time No Known Drug Allergies Allergy Verified 12/19/23 14:59 Procedure Insertion date: 12/20/23 Insertion time: 06:16 Prep/Local: betadine x3 and 1% lidocaine Interspace: L3-L4 Patient position: sitting Needle: 18 gauge Hustead Loss of resistance with: saline (+Air) ELIZABETH at (cm): 7 Catheter placed at SKIN (cm): 14 Catheter in SPACE (cm): 5 Insertion: No CSF, No Blood, No Paresthesia with insertion, No Paresthesia with injection and No Test dose reaction Initial Medications TEST DOSE time: 06:17 TEST DOSE: 1.5% lidocaine with epinephrine 1:200k (mL): 3 BOLUS DOSE time: 07:00 BOLUS DOSE (mL): 7 BOLUS DOSE med: other (2% Lidocaine) Infusion INFUSION: 0.125% bupivacaine and with fentanyl 2 mcg/mL Initial rate (mL/hr): 8 Subsequent interventions: Bolus 2%Lidocaine 5ml. 0900 - Called to bedside for pain control. Per patient she has had minimal pain relief. Patient placed in sitting position at edge of bed. Catheter at 14cm. Pulled back catheter to 12cm and bolused 10cc 0.25% bupivacaine and 100mcg Fentanyl in 2 divided doses 5 minutes apart. Patient reports cold sensation on injection, improved pain during contractions, and a sense of feeling more calm. Increased basal rate to 10mL/hr on epidural pump. -Idalia Rangel CRNA Post-procedure Anesthesia date START: 12/20/23 Anesthesia time START: 06:13 Anesthesia date END: 12/20/23 Anesthesia time END: 10:59 Post-procedure Anesthesia Assessment: Yes CV function: HR/BP stable, Yes Resp function: RR/sat/airway adequate, Yes Post-op hydration adequate, Yes Pain control adequate, Yes Nausea & vomiting absent, Yes Temperature > 36 C and Yes Mental status appropriate <Idalia Rangel CRNA - Last Filed: 12/20/23 15:50> Infusion Subsequent interventions: Bolus 2%Lidocaine 5ml. Catheter pulled back 2cm 0900 - Called to bedside for pain control. Per patient she has had minimal pain relief. Patient placed in sitting position at edge of bed. Catheter at 14cm. Pulled back catheter to 12cm and bolused 10cc 0.25% bupivacaine and 100mcg Fentanyl in 2 divided doses 5 minutes apart. Patient reports cold sensation on injection, improved pain during contractions, and a sense of feeling more calm. Increased basal rate to 10mL/hr on epidural pump. -Idalia Rangel CRNA
--- NOTE | 2023-12-20 12:46 | P.PCNOB_ITS ---
Labor & Delivery Delivery date: 12/20/23 Cervical ripening method: none Induction method: none Delivery augmentation: rupture of membranes Delivery monitor: external FHT and external uterine Route of delivery: L&D Laceration Description: Perineal - 1st Degree and Vaginal - 1st Degree Delivery repair: chromic Quantitative Blood Loss: 180 Anesthesia Type: Epidural and Local Complications: Shoulder dystocia okay Narrative: Patient complete and pushed with 4 contractions. At 10:58 a.m. the vertex delivered over an intact perineum in the ZAHRAA presentation. There was a mild shoulder dystocia. The patient was moved from the hands and knees position to the lithotomy. She was placed Roselia position. There was no movement of the head. Suprapubic pressure was applied from the [id number] direction. The shoulders delivered at 10:59 a.m. and the infant was placed on mom's abdomen. There was noted to be a true knot in the cord. Pitocin was given in the IV fluids. After the cord stopped pulsing, cord bloods were obtained. The justo madhavi delivered intact with a three-vessel cord at 11:05 a.m.. The fundus was massaged to firm. A first-degree vaginal/perineal laceration was noted and repaired in the usual fashion. Hemostasis was achieved. Apgars 8 at 1 minute and 9 at 5 minutes. QBL 180 cc. True knot in the cord. . Mom and infant stable to recovery. Baby 1: gender: Female Presentation: vertex Position: Right Occiput Anterior Placenta delivery description: Spontaneous Cord Vessel Description: 3 Vessels and True Knot (x1) score (1 min): 8 score (5 min): 9 weight: 7 lb 6.8 oz Plan for aftercare: Routine care
[2023-12-20] MEDS: LACTATED RINGERS 1,000 ML 100 ML IV (12:47)
[2023-12-20] MEDS: OXYTOCIN PREMIX 30 UNIT/500 ML PLAST..BAG 200 UNIT IV (12:47)
[2023-12-20] MEDS: IBUPROFEN 600 MG TABLET PO ×2 (14:24→20:31)
[2023-12-20] MEDS: DERMOPLAST SPRAY 20% 60 ML 1 SPRAY TOP (17:27)
[2023-12-20] MEDS: ACETAMINOPHEN 325 MG TABLET 650 MG PO (17:27)
[2023-12-21] MEDS: ACETAMINOPHEN 325 MG TABLET 650 MG PO ×3 (00:14→12:48)
[2023-12-21] MEDS: IBUPROFEN 600 MG TABLET PO ×2 (02:39→08:47)
[2023-12-21 05:12] LABS: Hematocrit 32.4 % (36-46); Hemoglobin 11.2 g/dL (12.0-16.0)
[2023-12-21] MEDS: PRENATAL VIT,CALC/IRON/FOLIC 1 TABLET 1 TAB PO (08:46)
[2023-12-21] MEDS: DOCUSATE 100 MG CAPSULE PO (08:46)
--- NOTE | 2023-12-21 08:53 | P.DS_ITS ---
Discharge Providers Provider Date of admission: 12/20/23 03:45 Discharge Date: 12/21/23 Primary care physician: Stephanie Horne PA-C Consults: 12/20/23 04:26 Consult to Anesthesiology Urgent Comment: Consulting Provider: Anesthesiologist Reason for consultation: Epidural 12/21/23 12:40 Consult to Automated Weaver Routine Comment: 12/21/23 21:41 Consult to Automated Weaver Routine Comment: Discharge provider: Alba Maher DO Summary Hospital Course Date Patient Seen: 12/21/23 Time Patient Seen: 08:53 Diagnoses: Term gestation at 40+5wks Shoulder dystocia Obesity in Hospital Course: 28yo [id number] admitted at 40+5wks in active labor. Her delivery was complicated by a shoulder dystocia which was relieved with Roselia positioning and suprapubic pressure. Her delivery was productive of a viable female with Apgars 8/9. Her course was uncomplicated. By day #1, she was ambulating, tolerating regular diet, voiding spontaneously with minimal lochia. Her pain was well controlled with oral medications, thus she was discharged to home on day #1. Peripartum Data Delivery Method: Natural Vaginal Laceration Description: Perineal - 1st Degree Procedures: External monitoring Artificial rupture of membranes Epidural anesthesia Spontaneous vaginal delivery Perineal laceration repair complications: none Discharge Diagnosis (1) Shoulder dystocia during labor and delivery, delivered: Status: Acute (2) Obesity complicating : Status: Acute (3) Vaginal delivery: Status: Acute Status at Discharge Cognitive/behavioral status at discharge: oriented Functional status at discharge: independent ambulation Overall status at discharge: patient is progressing back to baseline Time Spent with Patient Time attestation: Total time spent providing and/or coordinating discharge services: Time spent: Less than 30 minutes Objective Labs 12/21/23 05:03 Labs: Laboratory Results - last 24 hr 12/21/23 05:03 Hgb 11.2 L Hct 32.4 L Exam Vital Signs (past 8 hours): vitals reviewed in OBIX, some mild range blood pressures during labor, normal blood pressures Const General: cooperative, healthy appearing, comfortable and No acute distress Resp Effort & Inspection: normal respiratory effort GI Inspection: normal to inspection Other: fundus firm and nontender at U-2 Skin General: no rashes or lesions noted Neuro General: patient alert and patient awake Extrem General: normal to inspection, no pedal edema and no calf tenderness Psych Mood: congruent mood Affect: normal affect Discharge Plan Discharge Plan Patient Disposition: Home Provider Discharge Comment: Take ibuprofen 600 mg every 6 hours and Tylenol 650 mg every 6 hours as needed for pain. Avoid placing anything in the vagina for 6 weeks. Be sure to have your thyroid labs checked at 6 weeks , so your levothyroxine dosing can be adjusted as needed. Discharge orders & Medications Prescriptions: Continued levothyroxine 125 mcg tablet 125 mcg PO DAILY Qty: 30 3RF RSVPreF3 antigen-AS01E (PF) 120 mcg/0.5 mL suspension for reconstitution 120 mcg IM ONCE Qty: 1 0RF prenat.vits,sugey,gln-scqr-cwycm Tablet 1 tab PO DAILY Follow up/Referrals: Lidia Cortes MD [Physician] - ( Appt w/ Dr. Cortes: Tuesday, January 31 @ 10:45am) Diet/Activity/Treatments Diet: Diet as Tolerated Activity: As tolerated Skin/Wound/Dressing Care Report to your healthcare provider any signs of infection, such as:: chills, fever, increased pain and unusual drainage Visit Report/Discharge Packet Instructions: DI for Labor and Delivery, Vaginal Stand Alone Forms: Discharge: Care, Patient Portal/API, Stroke Signs & Symptoms Discharge Data Primary Care Provider: Stephanie Horne
[2023-12-21] MEDS: LEVOTHYROXINE 125 MCG TABLET PO (09:16)
== END 2023-12-21 13:30 | disposition home or self-care (01) | DRG 807 ==
PROVIDERS: Admitting Provider Obstetrics & Gynecology; PCP Physician Assistant Medical; Referring Provider Obstetrics & Gynecology; Visit Provider Obstetrics & Gynecology
DX: O70.0 First degree perineal laceration during delivery (principal); Z37.0 Single live birth; Z3A.40 40 weeks gestation of pregnancy; O48.0 Post-term pregnancy
CPT/HCPCS: 36415; 59025; 59050; 59400; 85014; 85018; 85025; 86850; 86900; 86901; G0378; G0379; J2590; J3010

== ENCOUNTER → 2024-02-01 11:23 | Outpatient (CLI) | payer OTHER, SELFPAY ==
[2024-02-01 13:34] LABS: TSH w/ Reflex to FT4 0.08 uIU/mL (0.47-4.68)
[2024-02-03 03:54] LABS: Free T4, Direct Thyroxine 1.72 ng/dL (0.78-2.19)
== END ==
LOC: LAB 11:24
PROVIDERS: PCP Physician Assistant Medical; Referring Provider Specialist; Visit Provider Specialist
DX: E03.9 Hypothyroidism, unspecified (principal)
CPT/HCPCS: 36415; 84439; 84443